=== PATIENT | male | born 2000 | race Caucasian/White ===

== ENCOUNTER 2024-09-26 07:49 | Emergency (ER) | payer MEDICAID, OTHER ==
[~2024-09-26] VITALS: Ht 182.9 cm; Wt 79.0 kg
[2024-09-26 07:58] VITALS: O2SAT 100
[2024-09-26] MEDS ORDERED: FAMO-135 MT (08:28)
[2024-09-26] MEDS ORDERED: DIPH25CA83 MT (08:28)
[2024-09-26 08:54] VITALS: BP 137/73; PULSE 46; RESP 14; TEMP 36.9; O2SAT 100
[2024-09-26] MEDS: FAMOTIDINE 20MG TABLET PO STA (08:54)
[2024-09-26] MEDS: DIPHENHYDRAMINE 50MG CAPSULE PO STA (08:55)
== END 2024-09-26 08:55 | disposition home or self-care (01) ==
LOC: ER 07:49
DX: R21 Rash and other nonspecific skin eruption (principal)
CPT/HCPCS: 99283; Q0163